=== PATIENT | female | born 1965 | race Two or more races ===

== ENCOUNTER → 2016-12-09 | Day surgery (SDC) | payer OTHER ==
[~2016-12-09] VITALS: Ht 154.9 cm; Wt 99.8 kg
[2016-12-09 09:19] LABS: HCT 42.6 % (37.0-47.0); HGB 14.5 g/dl (12.5-16.0); MCH 32.2 pg (25.0-31.0); MCV 94.5 fL (78.0-100.0); MPV 10.6 fL (6.0-9.5); RBC 4.51 M/uL (4.20-5.40); RDW 13.7 % (11.5-14.0); WBC 7.3 K/uL (4.0-10.5)
[2016-12-09 09:33] LABS: ALBUMIN 3.7 g/dL (3.5-5.0); BILIRUBIN - TOTAL 0.5 mg/dL (0.1-1.0); CREATININE 0.6 mg/dL (0.5-1.0); GLOBULIN (CALCULATION) 3.1 g/dL (2.2-4.2); TOTAL PROTEIN 6.8 g/dL (6.4-8.3)
[2016-12-09 09:35] LABS: POTASSIUM 5.1 mmol/L (3.5-5.1)
== END | disposition home or self-care (01) ==
LOC: FAS 08:04
PROVIDERS: Surgery
DX: K29.50 Unspecified chronic gastritis without bleeding (principal); K21.9 Gastro-esophageal reflux disease without esophagitis; E11.9 Type 2 diabetes mellitus without complications; M19.90 Unspecified osteoarthritis, unspecified site; F17.210 Nicotine dependence, cigarettes, uncomplicated; Z82.61 Family history of arthritis; Z82.3 Family history of stroke; Z83.42 Family history of familial hypercholesterolemia; Z82.49 Family history of ischemic heart disease and other diseases of the circulatory system; Z83.3 Family history of diabetes mellitus; Z81.8 Family history of other mental and behavioral disorders; Z79.84 Long term (current) use of oral hypoglycemic drugs; Z79.899 Other long term (current) drug therapy
CPT/HCPCS: 36415; 76705; 80053; 88305; J2704